=== PATIENT | female | born 1935 | race Caucasian/White ===

== ENCOUNTER 2021-11-08 09:13 | Outpatient (CLI) | payer MEDICARE, SELFPAY ==
[2021-11-08 11:24] LABS: Chloride* 99 mmol/L (96-114); Potassium* 4.2 mmol/L (3.6-5.1); Sodium* 134 mmol/L (135-149)
[2021-11-08 11:27] LABS: Carbon Dioxide* 27 mmol/L (20-32); Creatinine* 0.9 mg/dL (0.5-1.5); Estimated Glomerular Filt Rate 62 ml/min
[2021-11-08 11:28] LABS: Blood Urea Nitrogen* 26 mg/dL (7-30); Calcium* 9.5 mg/dL (8.4-10.6); Glucose* 98 mg/dL (60-115)
== END 2021-11-08 09:14 | disposition home or self-care (01) ==
LOC: NFLDREF 09:14
PROVIDERS: PCP Internal Medicine; Visit Provider Internal Medicine
DX: Z00.00 Encounter for general adult medical examination without abnormal findings (principal); I10 Essential (primary) hypertension; L57.0 Actinic keratosis
CPT/HCPCS: 80048

== ENCOUNTER 2022-11-10 09:45 | Outpatient (CLI) | payer MEDICARE, SELFPAY | END 2022-11-10 09:46 | disposition home or self-care (01) | LOC: NFLDREF 11-11 08:49 | PROVIDERS: PCP Internal Medicine; Referring Provider Internal Medicine; Visit Provider Internal Medicine | DX: I10 Essential (primary) hypertension (principal) | CPT/HCPCS: 80048 ==

== ENCOUNTER 2023-11-27 09:54 | Outpatient (CLI) | payer MEDICARE, SELFPAY | END 2023-11-27 09:55 | disposition home or self-care (01) | LOC: NFLDREF 11-29 12:08 | PROVIDERS: PCP Internal Medicine; Referring Provider Internal Medicine; Visit Provider Internal Medicine | DX: I10 Essential (primary) hypertension (principal) | CPT/HCPCS: 80048 ==

== ENCOUNTER 2024-12-11 09:15 | Outpatient (CLI) | payer MEDICARE, SELFPAY | END 2024-12-11 09:16 | disposition home or self-care (01) | PROVIDERS: PCP Internal Medicine; Visit Provider Internal Medicine | DX: I10 Essential (primary) hypertension (principal); M81.0 Age-related osteoporosis without current pathological fracture | CPT/HCPCS: 80048; 82306 ==

== ENCOUNTER 2025-03-11 10:52 | Outpatient (CLI) | payer MEDICARE, SELFPAY | END 2025-03-11 10:53 | disposition home or self-care (01) | LOC: AMB 03-17 06:56 | PROVIDERS: PCP Internal Medicine; Visit Provider Family Medicine | DX: R55 Syncope and collapse (principal) | CPT/HCPCS: A0998 ==

== ENCOUNTER 2025-03-11 11:25 | Emergency (ER) | payer MEDICARE, SELFPAY ==
[2025-03-11] VITALS (23 sets, daily range): BP systolic 125–145; BP diastolic 75–94; PULSE 64–93; RESP 9–33; TEMP 36.1; O2SAT 93–100; BMI 21.1
--- NOTE | 2025-03-11 11:26 | ED.GENADULT ---
HPI - General Adult General Time Seen by Provider: 11: Date Seen: 03/11/25 Chief complaint: Fall/Minor Trauma Stated complaint: Syncopal Time Seen by Provider: 03/11/25 11:26 Source: patient and RN notes reviewed Mode of arrival: ambulatory Limitations: no limitations History of Present Illness HPI narrative: This 89-year-old female was ambulatory into the ED of her own accord after a fall off the toilet from a syncopal episode. She was on the toilet having a bowel movement, had syncope and fell off the toilet and was wedged between the toilet and the tub. Her life alert went off, contacted her family. When she came to her daughter was trying to call her. She denies any pain anywhere, no chest pain. She did have nausea and episode of emesis after she came to. She has had a history of syncope with defecation before, this is not new. She has never had emesis or nausea after. She is not on any blood thinners, does not think she hit her head. She has absolutely no pain anywhere including no chest pain. She has been ambulatory. She states she was supposed to be making of high for Thanksgiving. She is not short of breath, no abdominal pain, no ongoing nausea. Nursing staff did call a TTA in triage. After assessment of the patient, I do feel that we can stand down from the trauma team activation. Patient does states that she has not had an episode vasovagal syncope with defecation for over year. She does note that she has eaten breakfast this morning. Past medical history lists chronic hyponatremia, hypertension, rosacea, osteoporosis, glaucoma. Medications reviewed. Related Data Home Medications ?Medication ?Instructions ?Recorded ?Confirmed timolol 0.5 % eye drops 1 drp ophthalmic (eye) BID 11/10/21 12/11/24 Previous Rx's ?Medication ?Instructions ?Recorded fluorouracil 5 % topical cream 5 applic topical DIRECTED #40 11/10/21 grams lisinopril 20 mg tablet 20 mg PO QDAY #90 tabs 12/11/24 triamterene 37.5 1 cap PO DAILY #90 caps 12/11/24 mg-hydrochlorothiazide 25 mg capsule Allergies Allergy/AdvReac Type Severity Reaction Status Date / Time No Known Drug Allergies Allergy Verified 03/11/25 13:45 Review of Systems Status of ROS: Reports: 6 or more systems reviewed and unremarkable except as noted in History and below [facility] Medical History History of ulcerative colitis ?Z87.19 - Personal history of other diseases of the digestive system (ICD-10) Polyp of colon (01/13/09) ?K63.5 - Polyp of colon (ICD-10) History of gout (01/19/10) ?Z87.39 - Personal history of other diseases of the musculoskeletal system and connective tissue (ICD-10) Surgical History History of cataract surgery ?Z98.49 - Cataract extraction status, unspecified eye (ICD-10) Prolapse of female pelvic organs (2014) ?N81.9 - Female genital prolapse, unspecified (ICD-10) History of total hysterectomy with bilateral salpingo-oophorectomy (BSO) (01/13/09) ?Z90.710 - Acquired absence of both cervix and uterus (ICD-10) ?Z90.722 - Acquired absence of ovaries, bilateral (ICD-10) ?Z90.79 - Acquired absence of other genital organ(s) (ICD-10) History of squamous cell carcinoma (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/09) ?Z85.89 - Personal history of malignant neoplasm of other organs and systems (ICD-10) History of malignant melanoma (04/14/09) ?Z85.820 - Personal history of malignant melanoma of skin (ICD-10) History of basal cell carcinoma (06/02/09) ?Z85.828 - Personal history of other malignant neoplasm of skin (ICD-10) History of appendectomy (01/13/09) ?Z90.49 - Acquired absence of other specified parts of digestive tract (ICD-10) Social History What is your current living situation?: I presently have a place to live Problems where you live: no known problems In the past 12 months, utilities in danger of being shut off: no In past 12 months, lack of transportation kept you from medical appts, meetings, work, or getting things needed for daily living: no In the past 12 mos, have been you worried that your food would run out before you had money to buy more?: never true In the past 12 mos, the food you bought just didn't last and you didn't have money to buy more?: never true Smoking Status: Never smoker How often does anyone, including family, friends and others, physically hurt you: never How often does anyone, including family, friends and others, insult or talk down to you: never How often does anyone, including family, friends and others, threaten you with harm: never How often does anyone, including family, friends and others, scream or curse at you: never Exam Const: Vital Signs, click to edit/add: Vital Signs - 24 hr 03/11/25 11:33 03/11/25 11:51 03/11/25 12:00 Temperature 96.9 F L Pulse Rate 64 66 Pulse Rate [Pulse Oximeter] 74 Respiratory Rate 16 Blood Pressure Blood Pressure [Ri ght Upper Arm] 125/86 Pulse Oximetry 97 99 98 Oxygen Delivery Me thod Room Air 03/11/25 12:03 03/11/25 12:15 03/11/25 12:30 Temperature Pulse Rate 71 71 73 Pulse Rate [Pulse Oximeter] Respiratory Rate 12 16 Blood Pressure 136/78 Blood Pressure [Ri ght Upper Arm] Pulse Oximetry 100 97 98 Oxygen Delivery Me thod 03/11/25 12:32 03/11/25 12:45 03/11/25 13:00 Temperature Pulse Rate 74 77 76 Pulse Rate [Pulse Oximeter] Respiratory Rate 18 33 H 18 Blood Pressure 142/94 H Blood Pressure [Ri ght Upper Arm] Pulse Oximetry 99 94 100 Oxygen Delivery Me thod 03/11/25 13:02 03/11/25 13:03 03/11/25 13:15 Temperature Pulse Rate 78 74 81 Pulse Rate [Pulse Oximeter] Respiratory Rate 26 H 9 L Blood Pressure 143/77 H Blood Pressure [Ri ght Upper Arm] Pulse Oximetry 100 100 93 Oxygen Delivery Me thod 03/11/25 13:57 03/11/25 14:00 03/11/25 14:02 Temperature Pulse Rate 93 87 87 Pulse Rate [Pulse Oximeter] Respiratory Rate 17 16 Blood Pressure 145/77 H Blood Pressure [Ri ght Upper Arm] Pulse Oximetry 97 96 96 Oxygen Delivery Me thod 03/11/25 14:15 03/11/25 14:30 03/11/25 14:32 Temperature Pulse Rate 85 91 89 Pulse Rate [Pulse Oximeter] Respiratory Rate 21 15 Blood Pressure 145/75 H Blood Pressure [Ri ght Upper Arm] Pulse Oximetry 96 98 98 Oxygen Delivery Me thod This 89-year-old female is ambulatory into the ED. She is seen in exam room to, she is sitting up, alert, interactive, no apparent distress. Pupils equal round reactive, sclera clear, extraocular muscles intact. Symmetrical facial function, face atraumatic. Speech is normal. She has no midline tenderness over her neck or her back, no traumatic changes noted over her back. She has full range of motion of her neck without any pain. No jugular venous distension, no cervical adenopathy or masses. Lungs are clear, good air entry, no wheezing or crackles, no tachypnea, no accessory muscle use. No chest wall tenderness. CV regular rate and rhythm, no murmur, normal S1-S2, no S3-S4. Abdomen is soft, nontender, nondistended, no organomegaly, rebound or guarding. She has full range of motion of her upper extremities and lower extremities, no complaints of pain, no lower extremity edema. Skin visualized without any rash. Documenting provider has reviewed patient's vital signs: yes Course Course ED Course: At this point, I do not feel patient is exhibiting any significant traumatic change, will stand down the TTA. Will start with a portable chest x-ray, cardiac monitoring, pulse oximetry, IV placement with labs including troponin, D-dimer, lactate and EKG. Will observe to make sure that there is no cardiac manifestation, no pulmonary emboli concern. Patient has a history of vasovagal syncope with defecation and this is very likely same entity. Reevaluation(s) Time of Reevaluation #1: 12:20 Reevaluation #1: Reviewed with them that my preliminary review of her portable chest x-ray is without acute pathology, awaiting radiology over-read. Patient's daughter is here whom is a nurse. We reviewed the situation. We specifically did discuss head CT scan, we had not done this. We went over rationale for observing, patient is has no pain in her head or face, no neck pain, she has no pain from falling off the toilet anywhere. She still is not having any pain. Her nausea is improved, she did have episode of nausea and vomiting upon coming to from the vasovagal syncope. This is not necessarily atypical although she is never had it before. Her daughter would be interested in having the head CT done for reassurance if patient does go home. There is a history of hyponatremia, we will certainly be looking at her sodium but it is pending at this time. She is on pulse oximetry and cardiac monitoring, no hypoxia or arrhythmia. They are aware that she will require a follow up troponin in 2 hours. Time of Reevaluation #2: 12:38 Reevaluation #2: Sodium 127, was 122 in November, 130 before that. I would states that this is a stable level for this patient, did not require hospitalization in November. Will give her L of normal saline over 2 hours while we await the follow-up ED troponin. Her initial 1 is normal. Time of Reevaluation #3: 13:00 Reevaluation #3: Have reviewed the elevated D-dimer, we will proceed with chest CT PE protocol and venous bilateral lower extremity ultrasounds to rule out thromboembolic disease. Patient is maintaining sinus rhythm, not tachycardic, not hypoxic on her cardiac monitoring and pulse oximetry. They have decided they would like head CT imaging, I think this is appropriate especially if she does end up being discharged, they want to ensure no traumatic head injury. We did review normal initial troponin. She is receiving her IV fluid, they are happy to know that her sodium is improved. They do wonder about her hydrochlorothiazide, she has been on this for years, it certainly can contribute to hyponatremia. They will follow-up with Dr. Berry in regards to medication management. Additional Reevaluation(s): 2:30 p.m.: Patient is getting her blood drawn right now for the repeat ED highly sensitive troponin. If that is normal/reassuring, likely discharge to home. Family is comfortable with that, they have plans for somebody to stay with her tonight. They did bring up that she has had some cough since having COVID a while ago, chest x-ray is reassuring, no infiltrate, no pneumonia, no congestive heart failure. We also reviewed that her chest CT is not showing any pulmonary emboli. Her head CT shows age-related changes but no traumatic changes. They are happy to hear these reports. Vital Signs Vital signs: Initial Vital Signs Temperature 96.9 F L 03/11/25 11:33 Temperature Source Temporal Artery Scan 03/11/25 11:33 Pulse Rate 74 03/11/25 11:33 Respiratory Rate 16 03/11/25 11:33 Blood Pressure 125/86 03/11/25 11:33 Blood Pressure Mean 99 03/11/25 11:33 Blood Pressure Position Sitting 03/11/25 11:33 Pulse Oximetry 97 03/11/25 11:33 Oxygen Delivery Method Room Air 03/11/25 11:33 Vital Signs Temperature 96.9 F L 03/11/25 11:33 Pulse Rate 74 03/11/25 11:33 Respiratory Rate 16 03/11/25 11:33 Blood Pressure 125/86 03/11/25 11:33 Pulse Oximetry 97 03/11/25 11:33 Oxygen Delivery Method Room Air 03/11/25 11:33 Temperature 96.9 F L 03/11/25 11:33 Pulse Rate 89 03/11/25 14:32 Respiratory Rate 15 03/11/25 14:30 Blood Pressure 145/75 H 03/11/25 14:32 Pulse Oximetry 98 03/11/25 14:32 Oxygen Delivery Method Room Air 03/11/25 11:33 Medications Administered Medications: Discontinued Medications Generic Name Dose Route Start Last Admin Trade Name Freq PRN Reason Stop Dose Admin Sodium Chloride 1,000 mls @ 500 mls/hr 03/11/25 12:38 03/11/25 12:40 0.9 % Sodium Chloride 1000 Ml IV 03/11/25 14:37 500 mls/hr .Q2H ELLE Administration Medical Decision Making Lab Data Lab results reviewed: Yes I reviewed the patient's lab results Labs: Lab Results 03/11/25 03/11/25 03/11/25 Range/Units 11:35 12:20 14:20 WBC 6.96 (4.50-11.00) K/uL RBC 3.98 L (4.00-5.20) m/uL Hgb 12.3 (12.0-16.0) gm/dL Hct 36.6 (33.0-51.0) % MCV 92 (80-100) fL MCH 31 (26-34) pg MCHC 34 (32-36) gm/dL RDW Coeff of Hernan 12.6 (11.5-15.5) % Plt Count 284 (140-440) K/uL Neut % (Auto) 65.8 (42.0-72.0) % Lymph % (Auto) 25.7 (20-44) % Sunflower % (Auto) 6.9 (0.0-11.0) % Eos % (Auto) 1.1 (0.0-7.0) % Baso % (Auto) 0.4 (0.0-3.0) % Neut # (Auto) 4.57 (1.7-7.0) K/uL Lymph # (Auto) 1.79 (0.90-2.90) K/uL Sunflower # (Auto) 0.50 (0.00-0.90) K/UL Eos # (Auto) 0.08 (0.00-0.50) K/uL Baso # (Auto) 0.03 (0.00-0.30) K/uL Abs Immat Gran (auto) 0.01 (0.00-0.30) K/uL Imm/Tot Granulo (auto) 0.1 % D-Dimer Quant (PE/DVT) 1.57 H (0.00-0.50) ug/ml VBG pH 7.395 (7.32-7.43) VBG pCO2 45 (40-50) mmHG VBG pO2 30.2 (25-47) mmHG VBG HCO3 28 (21-28) mmol/L Sodium 127 L (135-149) mmol/L Potassium 4.4 (3.6-5.1) mmol/L Chloride 91 L (96-114) mmol/L Carbon Dioxide 26 (20-32) mmol/L Anion Gap 10 (7-15) mEq/L BUN 28 (7-30) mg/dL Creatinine 0.9 (0.5-1.5) mg/dL Estimated Creat Clear 34.32 Estimated GFR 61 ml/min Glucose 124 H (60-115) mg/dL Lactate 1.4 (0.5-1.9) mmol/L Calcium 9.4 (8.4-10.6) mg/dL Total Bilirubin 0.6 (0.1-1.5) mg/dL AST 36 H (12-35) U/L ALT 25 (4-35) U/L Alkaline Phosphatase 58 (40-150) U/L Troponin I < 0.01 (0.01-0.04) ng/mL POC Troponin I High Sensi 5.9 7.4 (2.9-13.0) pg/mL NT-Pro-B Natriuret Pep 228 (See Note) pg/mL Total Protein 7.6 (6.0-8.3) g/dL Albumin 4.2 (3.3-5.0) g/dL Lipase 166 (23-300) U/L Imaging Data Chest x-ray: Attestation: I have reviewed the pertinent imaging results. My impression: I see no acute pathology on my preliminary review. Radiologist's impression: Patient: DANA LEWIS Facility:?[facility] Patient ID:?[id number] Site Patient ID:?[id number]. Site :?1935 Study:?XRay-Chest -03/11/2025 12:41:17 PM Ordering Physician:Richard Bazan Final Report: INDICATION: : Syncope COMPARISON: None TECHNIQUE: One view(s) of the chest FINDINGS: The cardiomediastinal silhouette and pulmonary vasculature are unremarkable. There is no focal airspace consolidation, pleural effusion, or pneumothorax. No displaced fractures. IMPRESSION: No acute cardiopulmonary process. Dictated by Dario Worthington MD @ 03/11/2025 12:42:45 PM (Electronic Signature) CT scan - head: Attestation: I have reviewed the pertinent imaging results. Radiologist's impression: Patient: DANA LEWIS Facility:?[facility] Patient ID:?[id number] Site Patient ID:?[id number]. Site :?1935 Study:?CT-Head WITHOUT-03/11/2025 1:39:44 PM Ordering Physician:Richard Bazan Final Report: INDICATION: Fall, syncope. COMPARISON: None. TECHNIQUE: CT of the brain / head without intravenous contrast. Multiplanar axial, coronal, and sagittal reformats were reconstructed. FINDINGS: No intracranial hemorrhage. Age-related parenchymal volume loss, mild no acute or subacute cortically based infarct. No substantial white matter hypodensities on CT. No mass or mass effect. Normal ventricles. No skull fractures. No worrisome focal bone lesion. IMPRESSION: Mild senescent change without any acute findings. Please note that all CT scans at this facility use dose modulation, iterative reconstruction, and/or weight-based dosing when appropriate to reduce radiation dose to as low as reasonably achievable. Dictated by Raina Arceo MD @ 03/11/2025 1:41:49 PM (Electronic Signature) CT scan - chest: Attestation: I have reviewed the pertinent imaging results. Radiologist's impression: Patient: DANA LEWIS Facility:?[facility] Patient ID:?[id number] Site Patient ID:?[id number]. Site :?1935 Study:?CT-Chest Angio 95CC ISOVUE 370-03/11/2025 1:40:05 PM Ordering Physician:Richard Bazan Final Report: INDICATION: Fall with syncope and elevated D-dimer COMPARISON: Same day chest radiograph TECHNIQUE: CT pulmonary angiogram of the chest with intravenous contrast (95 milliliters Isovue 370). Reconstructed images/MIPS were created. FINDINGS: Airways: The trachea and central airways are clear. Mild multifocal distal airway dilation/bronchiolectasis. Lungs: No mass or consolidation. Mild pulmonary atelectasis/scarring. Pleura: No effusion. Lymph nodes: No bulky thoracic lymphadenopathy. Heart: Normal size. Aorta: No acute findings. Mild to moderate calcification. Pulmonary artery: Normal caliber of the main pulmonary artery. No pulmonary embolism is detected. Chest wall: Pectus excavatum. Bones: There are osseous degenerative changes. Slight multilevel anterior vertebral body wedging most conspicuous in the mid and inferior thoracic spine. Additional findings: Probable small hiatal hernia. IMPRESSION: 1. No acute thoracic findings. Specifically, no pulmonary embolism is detected. 2. Chronic and incidental findings as detailed above. Please note that all CT scans at this facility use dose modulation, iterative reconstruction, and/or weight-based dosing when appropriate to reduce radiation dose to as low as reasonably achievable. Dictated by Rodriguez Quinn MD @ 03/11/2025 1:50:19 PM (Electronic Signature) Venous US: Attestation: I have reviewed the pertinent imaging results. Radiologist's impression: Patient: DANA LEWIS Facility:?[facility] Patient ID:?[id number] Site Patient ID:?[id number]. Site :?1935 Study:?US-Extremity Bilateral LEV-03/11/2025 2:01:54 PM Ordering Physician:Richard Bazan Final Report: INDICATION: Syncope. Elevated D-dimer. COMPARISON: None available. TECHNIQUE: Static and compression grayscale and spectral (including color) Doppler ultrasound of the bilateral lower extremities. FINDINGS: Deep veins: The imaged bilateral common femoral, deep femoral, superficial femoral, popliteal, posterior tibial, and peroneal veins are patent and free of clot. Superficial veins: The imaged bilateral great saphenous veins are patent and free of clot. Extravascular findings: No significant incidental findings. IMPRESSION: No evidence of DVT in either lower extremity. Dictated by Messi Guthrie MD @ 03/11/2025 2:10:09 PM (Electronic Signature) ECG Data Attestation: I personally reviewed and interpreted this ECG as follows: (Sinus rhythm with first-degree AV block, 83 beats per minute. No ischemia, no infarct.) Prior ECG tracings: not available for review Discharge Plan Discharge Clinical Impression: Chronic hyponatremia Syncope Qualifiers: Syncope type: vasovagal syncope Qualified Code(s): R55 - Syncope and collapse Patient Disposition: Home, Self-Care Condition: Stable Instructions: Hyponatremia (ED), Syncope (ED) Additional Instructions: Need to schedule a clinic followup with Dr. Berry within the next 1-2 weeks, preferentially as soon as possible. You need to review the episode of syncope which is thought to be associated with defecation as have happen with prior episodes. Also reviewed the chronic hyponatremia. You can discuss medication management with her as far as contributors to hyponatremia. Activity Level: Activity as Tolerated Prescriptions: No Action timolol 0.5 % drops 1 drp ophthalmic (eye) BID fluorouracil 5 % cream 5 applic topical DIRECTED Qty: 40 1RF Rx Instructions: Apply to affected area twice daily for 3 weeks. lisinopril 20 mg tablet 20 mg PO QDAY Qty: 90 3RF triamterene-hydrochlorothiazid 37.5-25 mg capsule 1 cap PO DAILY Qty: 90 3RF Follow Up/Referrals: Malika Berry MD [Primary Care Provider, Internal Medicine] Stand Alone Forms: [facility] Info Instructions Procedures ABG Interpretation ABG Results: 03/11/25 11:35 VBG pH 7.395 VBG pCO2 45 VBG pO2 30.2 VBG HCO3 28
--- NOTE | 2025-03-11 11:35 | CRLHL7_ITS ---
For Patients: As a result of the Cures Act, medical imaging exams and procedure reports are released immediately into your electronic medical record. You may view this report before your referring provider. If you have questions, please contact your health care provider. INDICATION: : Syncope COMPARISON: None TECHNIQUE: One view(s) of the chest FINDINGS: The cardiomediastinal silhouette and pulmonary vasculature are unremarkable. There is no focal airspace consolidation, pleural effusion, or pneumothorax. No displaced fractures. IMPRESSION: No acute cardiopulmonary process. Dictated by Dario Worthington MD @ 03/11/2025 12:42:45 PM (Electronically Signed)
[2025-03-11 11:46] LABS: HCO3 VBG 28 mmol/L (21-28); Lactate* 1.4 mmol/L (0.5-1.9); PCO2 VBG 45 mmHG (40-50); PO2 VBG 30.2 mmHG (25-47); pH VBG 7.395 (7.32-7.43)
[2025-03-11 11:48] LABS: Hematocrit* 36.6 % (33.0-51.0); Hemoglobin* 12.3 gm/dL (12.0-16.0); Immature Granulocytes Abs Auto 0.01 K/uL (0.00-0.30); Immature Granulocytes Pct Auto 0.1 %; Lymphocytes Absolute Auto 1.79 K/uL (0.90-2.90); Mean Corpuscular HGB Conc 34 gm/dL (32-36); Mean Corpuscular Hemoglobin 31 pg (26-34); Mean Corpuscular Volume 92 fL (80-100); RDW Coefficient of Variation % 12.6 % (11.5-15.5); Red Blood Count* 3.98 m/uL (4.00-5.20); White Blood Count* 6.96 K/uL (4.50-11.00)
[2025-03-11 11:51] LABS: Slide Review Reflex No
[2025-03-11 12:02] LABS: Albumin* 4.2 g/dL (3.3-5.0); Chloride* 91 mmol/L (96-114); Potassium* 4.4 mmol/L (3.6-5.1); Sodium* 127 mmol/L (135-149)
[2025-03-11 12:04] LABS: Blood Urea Nitrogen* 28 mg/dL (7-30); Creatinine* 0.9 mg/dL (0.5-1.5); Est. Creatinine Clearance* 34.32; Estimated Glomerular Filt Rate 61 ml/min
[2025-03-11 12:05] LABS: Alanine Aminotransferase* 25 U/L (4-35); Alkaline Phosphatase* 58 U/L (40-150); Anion Gap 10 mEq/L (7-15); Aspartate Amino Transferase* 36 U/L (12-35); Bilirubin Total* 0.6 mg/dL (0.1-1.5); Calcium* 9.4 mg/dL (8.4-10.6); Carbon Dioxide* 26 mmol/L (20-32); Glucose* 124 mg/dL (60-115); Total Protein* 7.6 g/dL (6.0-8.3)
[2025-03-11 12:08] LABS: D Dimer Quantitative* 1.57 ug/ml (0.00-0.50)
[2025-03-11 12:15] LABS: NT Pro B Type NatriureticPept* 228 pg/mL (See Note)
--- NOTE | 2025-03-11 13:00 | CRLHL7_ITS ---
For Patients: As a result of the Century Cures Act, medical imaging exams and procedure reports are released immediately into your electronic medical record. You may view this report before your referring provider. If you have questions, please contact your health care provider. INDICATION: Syncope. Elevated D-dimer. COMPARISON: None available. TECHNIQUE: Static and compression grayscale and spectral (including color) Doppler ultrasound of the bilateral lower extremities. FINDINGS: Deep veins: The imaged bilateral common femoral, deep femoral, superficial femoral, popliteal, posterior tibial, and peroneal veins are patent and free of clot. Superficial veins: The imaged bilateral great saphenous veins are patent and free of clot. Extravascular findings: No significant incidental findings. IMPRESSION: No evidence of DVT in either lower extremity. Dictated by Messi Guthrie MD @ 03/11/2025 2:10:09 PM (Electronically Signed)
--- NOTE | 2025-03-11 13:01 | CRLHL7_ITS ---
For Patients: As a result of the Cures Act, medical imaging exams and procedure reports are released immediately into your electronic medical record. You may view this report before your referring provider. If you have questions, please contact your health care provider. INDICATION: Fall, syncope. COMPARISON: None. TECHNIQUE: CT of the brain / head without intravenous contrast. Multiplanar axial, coronal, and sagittal reformats were reconstructed. FINDINGS: No intracranial hemorrhage. Age-related parenchymal volume loss, mild no acute or subacute cortically based infarct. No substantial white matter hypodensities on CT. No mass or mass effect. Normal ventricles. No skull fractures. No worrisome focal bone lesion. IMPRESSION: Mild senescent change without any acute findings. Please note that all CT scans at this facility use dose modulation, iterative reconstruction, and/or weight-based dosing when appropriate to reduce radiation dose to as low as reasonably achievable. Dictated by Raina Arceo MD @ 03/11/2025 1:41:49 PM (Electronically Signed)
--- NOTE | 2025-03-11 13:01 | CRLHL7_ITS ---
For Patients: As a result of the Century Cures Act, medical imaging exams and procedure reports are released immediately into your electronic medical record. You may view this report before your referring provider. If you have questions, please contact your health care provider. INDICATION: Fall with syncope and elevated D-dimer COMPARISON: Same day chest radiograph TECHNIQUE: CT pulmonary angiogram of the chest with intravenous contrast (95 milliliters Isovue 370). Reconstructed images/MIPS were created. FINDINGS: Airways: The trachea and central airways are clear. Mild multifocal distal airway dilation/bronchiolectasis. Lungs: No mass or consolidation. Mild pulmonary atelectasis/scarring. Pleura: No effusion. Lymph nodes: No bulky thoracic lymphadenopathy. Heart: Normal size. Aorta: No acute findings. Mild to moderate calcification. Pulmonary artery: Normal caliber of the main pulmonary artery. No pulmonary embolism is detected. Chest wall: Pectus excavatum. Bones: There are osseous degenerative changes. Slight multilevel anterior vertebral body wedging most conspicuous in the mid and inferior thoracic spine. Additional findings: Probable small hiatal hernia. IMPRESSION: 1. No acute thoracic findings. Specifically, no pulmonary embolism is detected. 2. Chronic and incidental findings as detailed above. Please note that all CT scans at this facility use dose modulation, iterative reconstruction, and/or weight-based dosing when appropriate to reduce radiation dose to as low as reasonably achievable. Dictated by Rodriguez Quinn MD @ 03/11/2025 1:50:19 PM (Electronically Signed)
== END 2025-03-11 15:31 | disposition home or self-care (01) ==
PROVIDERS: Emergency Provider Family Medicine; PCP Internal Medicine
DX: E87.1 Hypo-osmolality and hyponatremia (principal); R55 Syncope and collapse; R11.2 Nausea with vomiting, unspecified; R79.1 Abnormal coagulation profile; W18.11XA Fall from or off toilet without subsequent striking against object, initial encounter; Z79.899 Other long term (current) drug therapy
CPT/HCPCS: 36415; 70450; 71045; 71275; 80053; 82803; 83605; 83690; 83880; 84484; 85025; 85379; 93005; 93970; 94761; 96360; 96361; 99284; 99285; J7030; Q9967